=== PATIENT | female | born 1960 | race Caucasian/White ===

== ENCOUNTER 2023-01-23 05:52 | Day surgery (SDC) | payer OTHER ==
[2023-01-18 11:53] VITALS: BP 155/84
[2023-01-18 12:01] LABS: BASOPHILS % (AUTO) 0.4 % (0.0-5.0); EOSINOPHILS % (AUTO) 1.2 % (0.0-8.0); LYMPHOCYTES % (AUTO) 29.6 % (21.0-51.0); MEAN CORPUSCULAR HEMOGLOBIN 30.5 pg (27.0-33.0); MEAN CORPUSCULAR HGB CONC 31.4 g/dL (32.0-36.0); MONOCYTES % (AUTO) 5.9 % (3.0-13.0); NEUTROPHILS % (AUTO) 62.4 % (40.0-77.0); PLATELET COUNT (AUTO) 227 K/uL (130-400); RED BLOOD CELL COUNT(AUTO) 3.71 MIL/uL (4.00-5.50); RED CELL DISTRIBUTION WIDTH 13.1 % (11.0-15.5); WHITE BLOOD COUNT (AUTO) 9.7 K/uL (4.8-10.8)
[2023-01-18 12:18] LABS: INR 1.02 (0.85-1.15); PROTHROMBIN TIME 11.1 SEC (9.6-11.6)
[2023-01-18 12:19] LABS: PARTIAL THROMBOPLASTIN TIME 27.9 SEC (26.3-35.5)
[2023-01-18 13:43] LABS: APPEARANCE,URINE CLOUDY (CLEAR); BILIRUBIN,URINE NEGATIVE (NEGATIVE); COLOR,URINE LIGHT-YELLOW (YELLOW); GLUCOSE, URINE (UA) NEGATIVE (NEGATIVE); KETONES,URINE NEGATIVE (NEGATIVE); LEUKOCYTE ESTERASE ,URINE 500 Leu/uL (NEGATIVE); NITRATE,URINE NEGATIVE (NEGATIVE); OCCULT BLOOD,URINE LARGE (NEGATIVE); PH,URINE 5.5 (5.0-8.0); PROTEIN,URINE 30 mg/dL (NEGATIVE); UROBILINOGEN,URINE 0.2 mg/dL (0.2-1.0)
[2023-01-18 13:57] LABS: MUCUS,URINE FEW LPF (None Seen); RBC,URINE TNTC /HPF (0-1); SQUAMOUS EPITHELIAL CELL,UR MOD /HPF (0-2)
[2023-01-23] VITALS (20 sets, daily range): BP systolic 128–158; BP diastolic 66–78
[~2023-01-23] VITALS: Ht 165.1 cm; Wt 86.2 kg
[~2023-01-23 05:52] MED LIST: AMIT75TA2 PO; DULA1.5P SQ; FERR-72 PO; GLIM4TAB36 PO; HYDR200T4 PO; INSU100V37 SQ; LEVO25CA4 PO; LISI10TA24 PO; MELO-108 PO; METF-446 PO; METO10TA3 PO; MODA200T48 PO; OMEP20CA12 PO; ONDA-104 PO; ROSU10TA28 PO; TRAM50TA4 PO; VITAD50000 PO
[2023-01-23] MEDS ORDERED: PANT40TA54 PO (07:09)
[2023-01-23] MEDS ORDERED: METH-822 PO (07:09)
[2023-01-23] MEDS ORDERED: DICL75TA5 PO (07:09)
[2023-01-23] MEDS ORDERED: CEFAZOLIN SODIUM 2 GM VIAL ONE (07:10)
[2023-01-23] MEDS ORDERED: 0.9%NACL 1000ML 1,000 ML IV ONE (07:10)
[2023-01-23] MEDS ORDERED: ONDANSETRON 4MG INJ ONE ×2 (08:03→10:56)
[2023-01-23] MEDS ORDERED: FENTANYL CITRATE PF 50 MCG/1 ML 2ML VIAL ONE ×3 (08:04→10:34)
[2023-01-23] MEDS ORDERED: ROCURONIUM 10MG/1ML SYR 10 MG/ML ML ONE (08:04)
[2023-01-23] MEDS ORDERED: MIDAZOLAM HCL 1 MG/ML 2ML VIAL ONE (08:04)
[2023-01-23] MEDS ORDERED: PROPOFOL 10 MG/ML 20ML VIAL IV ONE (08:04)
[2023-01-23] MEDS ORDERED: NEOSTIGMINE 5MG/5ML SYR IV ONE (10:07)
[2023-01-23] MEDS ORDERED: GLYCOPYRROLATE 1 MG/5 ML SYRINGE ONE (10:07)
[2023-01-23] MEDS ORDERED: MEPERIDINE-PF 25 MG/ML SYG ONE (10:57)
== END 2023-01-23 12:30 | disposition home or self-care (01) ==
LOC: DAH 05:52
PROVIDERS: ATTEND Obstetrics & Gynecology
DX: R10.2 Pelvic and perineal pain (principal); Z20.822 Contact with and (suspected) exposure to COVID-19; D27.1 Benign neoplasm of left ovary; N95.0 Postmenopausal bleeding; N73.6 Female pelvic peritoneal adhesions (postinfective); N85.4 Malposition of uterus; I10 Essential (primary) hypertension; E66.01 Morbid (severe) obesity due to excess calories; E11.9 Type 2 diabetes mellitus without complications; E78.00 Pure hypercholesterolemia, unspecified; Z80.9 Family history of malignant neoplasm, unspecified; Z68.30 Body mass index [BMI] 30.0-30.9, adult; Z79.899 Other long term (current) drug therapy
CPT/HCPCS: 85025; 85610; 85730; 86850 ×2; 86900 ×2; 86901 ×2; 87088; 87426; 81001; 36415 ×2; 58661; 58120; 82948 ×2; 88305; 88307; A6260; A4663; J7030 ×2; A4606; A4344; J3010 ×3; J3490; J2710; J2250; J2704; J2405 ×2; J2175; C1769 ×3; A4649 ×3; A4215 ×2; A4223; A4222; A4221; A4510; A4600

== ENCOUNTER → 2023-09-18 | Outpatient (CLI) | payer OTHER ==
[~2023-09-18] MED LIST changes: +DICL75TA5 PO; -HYDR200T4 PO; +HYDR200T75 PO; +METH-822 PO; -OMEP20CA12 PO; -ONDA-104 PO; +PANT40TA54 PO
== END | disposition home or self-care (01) ==
LOC: RAH 14:04
PROVIDERS: ATTEND Urology
DX: N20.0 Calculus of kidney (principal); M41.87 Other forms of scoliosis, lumbosacral region; Z90.49 Acquired absence of other specified parts of digestive tract
CPT/HCPCS: 74018; 76100

== ENCOUNTER → 2023-10-30 | Outpatient (CLI) | payer OTHER | END | disposition home or self-care (01) | LOC: RAH 12:13 | PROVIDERS: ATTEND Urology | DX: N20.0 Calculus of kidney (principal) | CPT/HCPCS: 74018; 76100 ==

== ENCOUNTER → 2025-07-16 | Outpatient (CLI) | payer OTHER ==
[~2025-07-16] MED LIST changes: -AMIT75TA2 PO; +AMIT75TA6 PO; -LEVO25CA4 PO; +LEVO25CA5 PO; -ROSU10TA28 PO; +ROSU10TA72 PO
[2025-07-16 15:19] LABS: IMMATURE GRANULOCYTE ABSOLUTE 0.01 K/uL (0-1); NUCLEATED RED BLOOD CELLS 0.0 % (0.0-0.19); PLATELET COUNT (AUTO) 165 K/uL (130-400); RED BLOOD CELL COUNT(AUTO) 3.55 MIL/uL (4.00-5.50); RED CELL DISTRIBUTION WIDTH 12.8 % (11.0-15.5); WHITE BLOOD COUNT (AUTO) 5.5 K/uL (4.8-10.8)
[2025-07-16 15:34] LABS: ASPARTATE AMINOTRANSFERASE 26.0 U/L (10-37); CREATININE 1.0 mg/dL (0.5-1.0); GLOMERULAR FILTR. RATE CALC 63.0 mL/min (>90); GLUCOSE,RANDOM 175.0 mg/dL (70-105); SODIUM SERUM 142.0 mmol/L (136-145); TOTAL PROTEIN, SERUM 6.4 g/dL (6.0-8.3); UREA NITROGEN, BLOOD 9.0 mg/dL (7-18)
== END | disposition home or self-care (01) ==
LOC: LAB 14:51
PROVIDERS: ATTEND Internal Medicine
DX: R11.0 Nausea (principal); R74.8 Abnormal levels of other serum enzymes
CPT/HCPCS: 36415; 80053; 85025